=== PATIENT | male | born 1950 | race Caucasian/White ===

== ENCOUNTER → 2018-11-21 | Outpatient (CLI) | payer MEDICARE ==
[~2018-11-21] MED LIST: CYCL10 PO; HYDACE5 PO; HYDMOR2 PO; NAPR500 PO; RXHYDACE PO; VITS/SUPPS
== END ==
LOC: PLD 12:06 → LAB SHORT 12:06
DX: L98.9 Disorder of the skin and subcutaneous tissue, unspecified (principal)
CPT/HCPCS: 88305; 88312

== ENCOUNTER → 2021-01-12 | Outpatient (CLI) | payer MEDICARE | LOC: LAB SHORT 14:52 → LAB 14:52 | DX: D48.5 Neoplasm of uncertain behavior of skin (principal); L57.0 Actinic keratosis; D23.5 Other benign neoplasm of skin of trunk; D22.5 Melanocytic nevi of trunk; Z88.5 Allergy status to narcotic agent | CPT/HCPCS: 88305 ==

== ENCOUNTER → 2023-04-12 | Outpatient (CLI) | payer OTHER | LOC: LAB SHORT 09:39 → LAB 09:39 | DX: R23.4 Changes in skin texture (principal); L83 Acanthosis nigricans | CPT/HCPCS: 88305 ==

== ENCOUNTER 2024-09-30 11:58 | Day surgery (SDC) | payer OTHER ==
[~2024-09-30] VITALS: Ht 177.8 cm; Wt 84.0 kg
[~2024-09-30 11:58] MED LIST changes: +Balanced Salt Epinephrine Irrigation Solution 500 mL IR SCH; +Moxifloxacin HCL 0.5 MG/0.1 ML 0.4MLSYR LEFTEYE SCH; +Ondansetron 4 MG SoluTab MM PRN; +PHENYLEPHRINE\\TROPICAMIDE\\TETRACAINE OPHTHALMIC DILATING SOLN LEFTEYE PRN; +Povidone-Iodine 450 DROP/30 ML Solution LEFTEYE SCH; +Povidone-Iodine 450 DROP/30 ML Solution ONE; +Tetracaine HCl/Pf 0.5% Opth Soln 4 ml ONE
--- NOTE | 2024-09-30 12:13 | NUR ---
09/30/24 1213 TONY PERERA HR 43-46 BASELINE PT STATES IT IS NORMAL FOR HIM DR MARIE APPROVED PT TO PROCEED W/ PRE OP
[2024-09-30] MEDS ORDERED: ASPI325 PO (12:24)
--- NOTE | 2024-09-30 12:54 | NUR ---
09/30/24 1254 Zeny Byrd 1248 BP 123/81 HR 48, O2 AT 97%, RESP16
[2024-09-30 13:05] VITALS: BP 115/78
== END 2024-09-30 13:19 | disposition home or self-care (01) ==
LOC: ORSCSDS 11:58
PROVIDERS: Student in an Organized Health Care Education/Training Program
PROC: 08RK3JZ Replacement of Left Lens with Synthetic Substitute, Percutaneous Approach (ICD-10-PCS; principal; 2024-09-30 13:30)
DX: H25.812 Combined forms of age-related cataract, left eye (principal); Z96.1 Presence of intraocular lens; H40.013 Open angle with borderline findings, low risk, bilateral
CPT/HCPCS: A9270; V2632